=== PATIENT | female | born 1945 | race Caucasian/White ===

== ENCOUNTER 2017-01-31 03:25 | Emergency (ER) | payer SELFPAY ==
[~2017-01-31] VITALS: Ht 157.5 cm; Wt 68.0 kg
[2017-01-31] MEDS ORDERED: CLOP75TA33 PO (04:29)
[2017-01-31] MEDS ORDERED: LOSA50TA20 PO (04:29)
[2017-01-31] MEDS ORDERED: METO-298 PO (04:29)
[2017-01-31] MEDS ORDERED: ISOS60TA4 PO (04:29)
[2017-01-31] MEDS ORDERED: ASPI-1159 PO (04:30)
[2017-01-31 05:57] LABS: BASOPHILS % 0.6 % (0.0-2.0); EOSINOPHILS % 1.4 % (0.0-5.0); HEMATOCRIT. 35.1 % (36.0-48.0); HEMOGLOBIN. 12.1 g/dL (12.0-16.0); LYMPHOCYTES % 17.9 % (20.0-50.0); MEAN CORPUSCULAR HEMOGLOBIN 30.1 pg (28.0-32.0); MEAN CORPUSCULAR VOLUME 87.3 fL (81.0-99.0); MONOCYTES % 5.2 % (2.0-8.0); NEUTROPHILS % 74.9 % (40.0-76.0); PLATELET 232 x1000/uL (130-400); RED BLOOD CELL COUNT 4.02 mill/uL (4.2-5.4); RED CELL DISTRIBUTION WIDTH 14.6 % (11.6-14.6)
[2017-01-31 06:13] LABS: CARBON DIOXIDE 24 mEq/L (21-32); CHLORIDE 107 mEq/L (98-107); TROPONIN I < 0.02 ng/mL (0.00-0.04)
[2017-01-31 06:25] VITALS: BP 144/69
== END 2017-01-31 07:06 | disposition home or self-care (01) ==
LOC: ER 03:44
DX: R00.2 Palpitations (principal); R06.02 Shortness of breath; I25.2 Old myocardial infarction; I10 Essential (primary) hypertension; E11.9 Type 2 diabetes mellitus without complications; Z95.5 Presence of coronary angioplasty implant and graft; Z79.82 Long term (current) use of aspirin
CPT/HCPCS: 36415; 71010; 80053; 84484; 85025; 93005; 99285; Z7610

== ENCOUNTER 2024-05-30 15:56 | Emergency (ER) | payer BC, MEDICAID ==
[~2024-05-30] VITALS: Ht 152.4 cm; Wt 55.0 kg
[~2024-05-30 15:56] MED LIST: ASPI-1497 PO; CLOP75TA33 PO; ISOS60TA76 PO; LOSA50TA41 PO; METO-385 PO
[2024-05-30 16:10] VITALS: TEMP 99; O2SAT 99
[2024-05-30 17:15] LABS: BASOPHILS % 0.7 % (0.0-2.0); EOSINOPHILS % 2.5 % (0.0-5.0); HEMOGLOBIN. 12.5 g/dL (12.0-16.0); LYMPHOCYTES % 13.2 % (20.0-50.0); MEAN CORPUSCULAR HEMOGLOBIN 29.4 pg (28.0-32.0); MEAN CORPUSCULAR VOLUME 89.2 fL (81.0-99.0); MEAN PLATELET VOLUME 7.4 fl (7.4-10.4); MONOCYTES % 5.5 % (2.0-8.0); NEUTROPHILS % 78.1 % (40.0-76.0); PLATELET 264 x1000/uL (130-400); RED BLOOD CELL COUNT 4.26 mill/uL (4.2-5.4); RED CELL DISTRIBUTION WIDTH 14.6 % (11.6-14.6); WHITE BLOOD COUNT 8.1 x1000/uL (4.5-11.0)
[2024-05-30 17:16] LABS: CHLORIDE 108 mEq/L (98-107); POTASSIUM 4.1 mEq/L (3.5-5.1); SODIUM 141 mEq/L (136-145)
[2024-05-30 17:17] LABS: CARBON DIOXIDE 28 mEq/L (21-32)
[2024-05-30 17:18] LABS: CALCIUM 10.4 mg/dL (8.7-10.4)
[2024-05-30 17:22] LABS: CREATININE 0.9 mg/dL (0.6-1.0); GLUCOSE 167 mg/dL (70-105); UREA NITROGEN BLOOD 20 mg/dL (9-23)
[2024-05-30 17:25] LABS: PARTIAL THROMBOPLASTIN TIME 24.5 sec (23.4-31.0); PROTHROMBIN TIME 10.7 sec (9.6-11.0); TROPONIN I HIGH SENSITIVITY 34 ng/L (3.0-34)
[2024-05-30] MEDS: NITROGLYCERIN 0.4MG TABLET SL SL PRN (18:25)
[2024-05-30 18:38] VITALS: BP 176/80; PULSE 66; RESP 14; O2SAT 97
== END 2024-05-30 19:06 | disposition left against medical advice (07) ==
LOC: ER 15:56 → EDBEDREQ 18:12 → EDBEDREQTM 18:12 → ER 19:06
DX: R07.9 Chest pain, unspecified (principal); I10 Essential (primary) hypertension; E11.9 Type 2 diabetes mellitus without complications; I25.2 Old myocardial infarction; Z79.899 Other long term (current) drug therapy; Z95.5 Presence of coronary angioplasty implant and graft
CPT/HCPCS: 36415; 71045; 80048; 83880; 84484; 85025; 93005; 99291